=== PATIENT | female | born 1945 | race Caucasian/White ===

== ENCOUNTER 2020-07-23 13:01 | Emergency (ER) | payer MEDICARE ==
[~2020-07-23] VITALS: Ht 175.3 cm; Wt 98.1 kg
[2020-07-23] MEDS ORDERED: ASPIRIN 325 MG TABLET PO ONE (13:15)
[2020-07-23] MEDS ORDERED: IV NORMAL SALINE 1,000ML 1,000 ML IV ONE (13:30)
[2020-07-23] MEDS ORDERED: ONDANSETRON PF 4 MG/2 ML VIAL. IVP ONE (13:30)
[2020-07-23] MEDS ORDERED: ASPIRIN 325 MG TABLET ONE (13:38)
[2020-07-23] MEDS ORDERED: ONDANSETRON PF 4 MG/2 ML VIAL. ONE (13:38)
[2020-07-23 13:46] LABS: BASO # 0.1 x10^3/uL (0.0-0.2); BASO % 1 % (0-3); EOS # 0.1 x10^3/uL (0.0-0.7); EOS % 1 % (0-3); HEMATOCRIT 40.9 % (36.0-47.0); HEMOGLOBIN 13.5 g/dL (12.0-15.5); LYMPH # 1.5 x10^3/uL (1.0-4.8); LYMPH % 16 % (24-48); MEAN CORPUSCULAR HEMOGLOBIN 28 pg (25-35); MEAN CORPUSCULAR HGB CONC 33 g/dL (31-37); MEAN CORPUSCULAR VOLUME 85 fL (79-100); MONO # 0.6 x10^3/uL (0.0-1.1); MONO % 6 % (0-9); NEUT # 6.9 x10^3uL (1.8-7.7); NEUT % 76 % (31-73); PLATELET COUNT 227 x10^3/uL (140-400); RED BLOOD COUNT 4.83 x10^6/uL (3.50-5.40); RED CELL DISTRIBUTION WIDTH 13.8 % (11.5-14.5)
--- NOTE | 2020-07-23 13:48 | PHYS DOC ---
Past History Past Medical History: High Cholesterol, Hypertension Past Surgical History: Hysterectomy Past Surgical History spinal surgery Smoking: Non-smoker, Quit Greater Than 1 Year Alcohol Use: None Drug Use: None Social History Past smoker-- [id number] General Adult EDM: Chief Complaint: CHEST PAIN HPI: HPI: Patient is a 75 year old F who presents with midsternal chest pain that began this morning at 2am. She states this pain radiates to both arms and is a constant, heavy feeling. She states that when the pain began she took hydrocodone 7.5/325mg x 1 tab and the pain was relieved. She did this 3x, with last dose of hydrocodone around 11:30. She states that every time the pain came back it was worse than previous. She has associated nausea, but no vomiting. She denies shortness of breath or diaphoresis. Cardiac risk factors of HTN, former smoker, and hyperchol. Denies trauma. Denies fever/chills. Denies known exposure to COVID19. Review of Systems: Review of Systems: Constitutional: Denies fever or chills Eyes: Denies redness or eye pain HENT: Denies nasal congestion or sore throat Respiratory: Denies cough or shortness of breath Cardiovascular: Denies palpitations; reports chest pain. GI: Denies abdominal pain or vomiting; reports nausea. : Denies dysuria or hematuria Musculoskeletal: Denies joint pain; reports chronic back pain. Integument: Denies rash or skin lesions Neurologic: Denies headache, focal weakness. Complete systems were reviewed and found to be within normal limits, except as documented in this note. Heart Score: HEART Score for Chest Pain: HEART Score for Chest Pain Response (Comments) Value History Moderately Suspicious 1 ECG Nonspecific Repolarizatio 1 Age > 65 2 Risk Factors >3 Risk Factors or Hx CAD 2 Troponin >3 x Normal Limit 2 Total 8 Risk Factors: Risk Factors: DM, Current or recent (<one month) smoker, HTN, HLP, family history of CAD, obesity. Risk Scores: Score 0 - 3: 2.5% MACE over next 6 weeks - Discharge Home Score 4 - 6: 20.3% MACE over next 6 weeks - Admit for Clinical Observation Score 7 - 10: 72.7% MACE over next 6 weeks - Early Invasive Strategies Current Medications: Current Meds: Current Medications Medications (Trade) Dose Ordered Sig/Nikki Start Time Stop Time Status Last Admin Dose Admin Aspirin (Shaila Aspirin) 325 mg 1X ONCE 07/23/20 13:15 07/23/20 13:16 UNV Ondansetron HCl (Zofran) 4 mg 1X ONCE 07/23/20 13:30 07/23/20 13:31 UNV Sodium Chloride 1,000 ml @ 1,000 mls/hr 1X ONCE 07/23/20 13:30 07/23/20 14:29 UNV Allergies: Allergies: Allergies Coded Allergies Type Severity Reaction Last Updated Verified latex Allergy Unknown 07/23/20 Yes valsartan Allergy Unknown 07/23/20 Yes Physical Exam: PE: Constitutional: Well developed, well nourished. HENT: Normocephalic, atraumatic Eyes: Conjunctiva normal, no discharge Neck: Normal range of motion, supple Lungs & Thorax: No respiratory distress, equal chest rise and fall, non-tender to palpation. Abdomen: Soft, no tenderness Skin: Warm, dry, no erythema, no rash Back: No tenderness, no CVA tenderness Extremities: No tenderness, no edema, no erythema. Neurologic: Alert and oriented X 3, no focal deficits noted Psychologic: Affect normal, judgment normal EKG: EKG: @13:08 Normal sinus rhythm with slight J point elevation in II, III, aVF, V4-V6. QRS 88 ms, QT 380 ms, QTc 418 ms. Radiology/Procedures: Radiology/Procedures: PROCEDURE: CHEST AP ONLY Single AP view of the chest. Comparison: None. Indication: Chest pain Findings: The heart is enlarged. There is no pneumothorax or effusion. No air space or interstitial disease. Impression: 1. No acute cardiopulmonary process. 2 cardiomegaly. Electronically signed by: Jamarcus Perez MD (07/23/2020 2:35 PM) [id number] PROCEDURE: CT ANGIOGRAPHY CHEST CT angiography of the chest 07/23/2020 3:21 PM Indication: Reason: hypoxia eval for PE / Spl. Instructions: / History: Technique: Multiple contiguous axial images were obtained through the chest after administration of intravenous iodinated contrast. Coronal, sagittal, and 3-D MIP reformations were created. Comparison: None Findings: There is no filling defect within central pulmonary arteries or evidence of acute pulmonary embolism. Heart size is top normal. No significant pericardial effusion is identified. As described vascular disease involving the thoracic aorta and to a lesser degree the coronary arteries noted. Scattered small mediastinal and bilateral hilar lymph nodes appear to be present. There is no pneumothorax. There is no significant pleural effusion. Multifocal intralobular septal thickening is seen. There is an 8mm noncalcified nodule in the apical right upper lobe (24). Multifocal groundglass opacities are seen more prominent in the lower lobes bilaterally. Lower lobe predominant bronchial thickening appears to be present.No evidence of acute abnormality in the partially visualized upper abdomen is identified. Probable diffuse osteopenia is seen. Dorsal: Stimulator device noted. No acute osseous changes are seen. IMPRESSION: 1. No evidence of acute pulmonary embolism 2. Diffuse groundglass infiltrates, most prominent in the bilateral lower lobes, with associated multifocal intralobular septal thickening, mild peribronchial thickening. Findings most commonly represent pulmonary edema. An atypical or viral infectious process should be considered in the appropriate clinical setting. 3. 8 mm noncalcified nodule, apical right upper lobe. Recommend follow-up CT scan in 6-12 months (refer to Fleischner Society guidelines below) Fleischner Society pulmonary nodule recommendations 2017, revision 4 SOLID NODULES Solitary solid nodule 6-8 mm (100-250 mm3) low-risk patients: CT at 6-12 months, then consider CT at 18-24 months high-risk patients: CT at 6-12 months, then CT at 18-24 months PQRS STATEMENT: One or more of the following individualized dose reduction techniques were utilized for this examination: 1. Automated exposure control 2. Adjustment of the mA and/or kV according to patient size 3. Use of iterative reconstruction technique Electronically signed by: Shaq Mosley MD (07/23/2020 4:14 PM) [id number] Course & Med Decision Making: Course & Med Decision Making Pertinent Labs and Imaging studies reviewed. (See chart for details) Patient with significant cardiac risk factors presents with report of midsternal chest discomfort that woke patient up this morning. EKG with subtle J-point elevations. No ST depressions appreciated. Labs obtained and posted to chart. Troponin significantly elevated concerning for an STEMI. Chest x-ray without acute process. Heparin bolus and drip initiated. Aspirin previously provided. Pain addressed. Patient with continued elevation in blood pressure and therefore Nitropaste appl ied. Patient noted to drop oxygen saturation down to 90% despite use of supplemental O2. CTA chest therefore obtained with signs of pulmonary edema vs atypical infection. BNP only 700s. Cannot fully exclude COVID19. COVID precautions placed. COVID testing obtained and pending. Patient requiring admission at facility with clinical laboratory technician capability for further evaluation and treatment. Discussed with Dr. Orosco (hospitalist) who is in agreement with admission at [facility]. Discussed case with Diana CRANKSHAFT BALANCER with Dr. Cantu (cardiology at [facility]) who is in agreement with consultation and plan for transfer. Discussed findings and plan with patient, who acknowledges understanding and agreement. COVID-19 CRITERIA: The patient was evaluated during the global COVID-19 pandemic, and that diagnosis was suspected/considered upon their initial pre sentation. Their evaluation, treatment and testing was consistent with current guidelines for patients who present with complaints or symptoms that may be related to COVID-19. Dragon Disclaimer: Dragon Disclaimer: This electronic medical record was generated, in whole or in part, using a voice recognition dictation system. Departure Departure: Impression: Primary Impression: NSTEMI (non-ST elevated myocardial infarction) Additional Impressions: Hypoxia Suspected 2019 novel coronavirus infection Disposition: 05 TRANSFER OTHER ([facility]- Dr. Orosco accepting) Condition: GUARDED Referrals: PCP,NO (PCP) Justification of Admission: Justification of Admission: Justification of Admission Dx: Yes MN: Acute NSTEMI Critical Care Time Critical care time was 30 minutes which includes time at bedside, spent in discussion of patient's care with specialists and/or family members, with interpretation of laboratory and/or radiological studies and is exclusive of procedures. COVID-19 Assessment COVID-19 Patient Risks: Age 65 or older: Yes Sign of co-morbidity: Yes Exp to person + for COVID: No Exp to PUI: No Travel from affected area: No Lower respiratory symptoms: Yes Fever: No PPE Use: Full PPE with N95 mask or PAPR: Yes MATHEW MONIQUE DO Jul 23, 2020 13:48
[2020-07-23 14:01] LABS: CALCIUM 9.7 mg/dL (8.5-10.1); GFR 54.1
[2020-07-23 14:18] LABS: ALBUMIN 3.5 g/dL (3.4-5.0); MAGNESIUM 1.8 mg/dL (1.8-2.4); TOTAL BILIRUBIN 0.4 mg/dL (0.2-1.0); TOTAL PROTEIN 7.1 g/dL (6.4-8.2)
[2020-07-23] MEDS ORDERED: HEPARIN for IV BOLUS 10,000 UNIT/10 ML VIAL. IV ONE (14:30)
--- NOTE | 2020-07-23 14:38 | RAD ---
Single AP view of the chest. Comparison: None. Indication: Chest pain Findings: The heart is enlarged. There is no pneumothorax or effusion. No air space or interstitial disease. Impression: 1. No acute cardiopulmonary process. 2 cardiomegaly. Electronically signed by: Jamarcus Perez MD (07/23/2020 2:35 PM) [id number]
[2020-07-23] MEDS ORDERED: MORPHINE SULFATE 4 MG/ML DISP.SYRIN. IV ONE (15:00)
[2020-07-23] MEDS ORDERED: NITROGLYCERIN SUBLINGUAL 0.4 MG BOTTLE OF 25. SL ONE (15:17)
[2020-07-23] MEDS ORDERED: NITROGLYCERIN OINT 1 GM PACKET. ONE (15:24)
[2020-07-23 15:28] VITALS: BP 189/111
[2020-07-23] MEDS ORDERED: HEPARIN 25,000UTS/250ML PREMIX 250 ML IV PRN (15:30)
[2020-07-23] MEDS ORDERED: NITROGLYCERIN OINT 1 GM PACKET. TP ONE (15:30)
[2020-07-23] MEDS ORDERED: IOHEXOL 350 MG/ML 100 ML VIAL. IV ONE (15:30)
--- NOTE | 2020-07-23 16:17 | RAD ---
CT angiography of the chest 07/23/2020 3:21 PM Indication: Reason: hypoxia eval for PE / Spl. Instructions: / History: Technique: Multiple contiguous axial images were obtained through the chest after administration of intravenous iodinated contrast. Coronal, sagittal, and 3-D MIP reformations were created. Comparison: None Findings: There is no filling defect within central pulmonary arteries or evidence of acute pulmonary embolism. Heart size is top normal. No significant pericardial effusion is identified. As described vascular disease involving the thoracic aorta and to a lesser degree the coronary arteries noted. Scattered small mediastinal and bilateral hilar lymph nodes appear to be present. There is no pneumothorax. There is no significant pleural effusion. Multifocal intralobular septal thickening is seen. There is an 8mm noncalcified nodule in the apical right upper lobe (24). Multifocal groundglass opacities are seen more prominent in the lower lobes bilaterally. Lower lobe predominant bronchial thickening appears to be present.No evidence of acute abnormality in the partially visualized upper abdomen is identified. Probable diffuse osteopenia is seen. Dorsal: Stimulator device noted. No acute osseous changes are seen. IMPRESSION: 1. No evidence of acute pulmonary embolism 2. Diffuse groundglass infiltrates, most prominent in the bilateral lower lobes, with associated multifocal intralobular septal thickening, mild peribronchial thickening. Findings most commonly represent pulmonary edema. An atypical or viral infectious process should be considered in the appropriate clinical setting. 3. 8 mm noncalcified nodule, apical right upper lobe. Recommend follow-up CT scan in 6-12 months (refer to Fleischner Society guidelines below) Fleischner Society pulmonary nodule recommendations 2017, revision 4 SOLID NODULES Solitary solid nodule 6-8 mm (100-250 mm3) low-risk patients: CT at 6-12 months, then consider CT at 18-24 months high-risk patients: CT at 6-12 months, then CT at 18-24 months PQRS STATEMENT: One or more of the following individualized dose reduction techniques were utilized for this examination: 1. Automated exposure control 2. Adjustment of the mA and/or kV according to patient size 3. Use of iterative reconstruction technique Electronically signed by: Shaq Mosley MD (07/23/2020 4:14 PM) [id number]
--- NOTE | 2020-07-23 17:37 | EKG ---
[address] [address] Test Date: 2020-07-23 Test Time: 13:08:43 Pat Name: JENNIFER WILEY Department: Room: Gender: F Non Licensed Operator: RANDY : 1945 Requested By: MATHEW MONIQUE Order Number: [id number] Reading MD: Measurements Intervals [place] Rate: 72 P: 61 CO: 162 QRS: 48 QRSD: 88 T: 59 QT: 380 QTc: 418 Interpretive Statements SINUS RHYTHM OTHERWISE NORMAL ECG RI6.02 No previous ECG available for comparison
--- NOTE | 2020-07-25 15:29 | NUR ---
IP: notified IP at [facility] of COVID result
== END 2020-07-23 18:52 | disposition short-term general hospital (02) ==
LOC: ER 13:01
DX: I21.4 Non-ST elevation (NSTEMI) myocardial infarction (principal); R09.02 Hypoxemia; E78.00 Pure hypercholesterolemia, unspecified; I10 Essential (primary) hypertension; Z20.828 Contact with and (suspected) exposure to other viral communicable diseases; Z87.891 Personal history of nicotine dependence; Z91.040 Latex allergy status; Z88.8 Allergy status to other drugs, medicaments and biological substances
CPT/HCPCS: 36415; 71045; 71275; 80053; 82553; 83690; 83735; 83880; 84484; 85025; 85610; 85730; 93005; 96361; 96365; 96366; 96375; 96376; 99291; J1644; J2270; J2405; J7030; U0003